=== PATIENT | male | born 2000 ===

== ENCOUNTER 2024-12-09 19:55 | Emergency (ER) | payer OTHER ==
[~2024-12-09] VITALS: Ht 188 cm; Wt 95.2 kg
[2024-12-09 20:18] VITALS: BP 142/78
[2024-12-09] MEDS ORDERED: CEPH500 PO (20:26)
== END 2024-12-09 20:24 | disposition home or self-care (01) ==
LOC: ER 19:55
DX: L03.116 Cellulitis of left lower limb (principal); T63.301A Toxic effect of unspecified spider venom, accidental (unintentional), initial encounter; Z91.030 Bee allergy status; Z91.048 Other nonmedicinal substance allergy status
CPT/HCPCS: 99282